=== PATIENT | male | born 1975 | race Two or more races ===

== ENCOUNTER 2018-08-09 12:02 | Inpatient (IN) | payer MEDICAID ==
[~2018-08-09] VITALS: Ht 167.6 cm; Wt 78.9 kg
[2018-08-09 12:52] LABS: microscopic required? NO
[2018-08-09 12:58] LABS: BASOPHIL % 0.4 % (0-2); PLATELET COUNT 136 x10^3mcL (130-400); RED CELL DISTRIBUTION WIDTH 12.7 % (11.5-14.5)
[2018-08-09 13:04] LABS: CALCIUM 8.8 mg/dL (8.5-10.1); CARBON DIOXIDE 26.3 mmol/L (21-32); CHLORIDE SERUM 102 mmol/L (98-107); CREATININE SERUM 0.6 mg/dL (0.7-1.3); GFR1 > 60 mL/min; GLUCOSE SERUM 264 mg/dL (74-106); POTASSIUM SERUM 3.9 mmol/L (3.5-5.1); SODIUM SERUM 135 mmol/L (136-145)
[2018-08-09 13:09] LABS: ALBUMIN 3.5 g/dL (3.4-5.0); ALKALINE PHOSPHATASE 60 U/L (46-116); ALT/SGPT 26 U/L (16-63); AST/SGOT 17 U/L (15-37); BILIRUBIN TOTAL 0.88 mg/dL (0.20-1.00); LIPASE 224 IU/L (73-393); TOTAL PROTEIN, SERUM 7.7 g/dL (6.4-8.2)
[2018-08-09 13:13] LABS: urine erythrocyte NEGATIVE (NEGATIVE)
[2018-08-09] MEDS ORDERED: METFORMIN HYDR500 M1 PO (14:08)
[2018-08-09 15:14] VITALS: BP 119/71
[2018-08-09 15:20] VITALS: Ht 167.6 cm; Wt 78.9 kg
[2018-08-09 16:25] VITALS: BP 103/57; BP 113/64
[2018-08-09 21:18] VITALS: BP 139/82
[2018-08-10 05:37] VITALS: BP 110/63
[2018-08-10 06:07] LABS: BASOPHIL % 0.5 % (0-2); RED CELL DISTRIBUTION WIDTH 13.1 % (11.5-14.5)
[2018-08-10 06:31] LABS: CALCIUM 8.4 mg/dL (8.5-10.1); CHLORIDE SERUM 105 mmol/L (98-107); CREATININE SERUM 0.6 mg/dL (0.7-1.3); GFR1 > 60 mL/min; GLUCOSE SERUM 153 mg/dL (74-106); POTASSIUM SERUM 4.1 mmol/L (3.5-5.1); SODIUM SERUM 140 mmol/L (136-145)
[2018-08-10 06:54] LABS: PLATELET COUNT 124 x10^3mcL (130-400)
[2018-08-10 08:47] VITALS: BP 114/68
[2018-08-10 11:27] VITALS: BP 122/75
[2018-08-10 16:38] VITALS: BP 150/83
[2018-08-10 21:06] VITALS: BP 125/75
[2018-08-11 06:04] VITALS: BP 102/59
[2018-08-11 08:53] VITALS: BP 133/79
[2018-08-11 10:12] LABS: BASOPHIL % 0.4 % (0-2); PLATELET COUNT 144 x10^3mcL (130-400); RED CELL DISTRIBUTION WIDTH 12.5 % (11.5-14.5)
[2018-08-11 10:30] LABS: ALKALINE PHOSPHATASE 50 U/L (46-116); ALT/SGPT 29 U/L (16-63); AST/SGOT 25 U/L (15-37); BILIRUBIN TOTAL 0.6 mg/dL (0.20-1.00); CALCIUM 9.4 mg/dL (8.5-10.1); CARBON DIOXIDE 29.7 mmol/L (21-32); CHLORIDE SERUM 102 mmol/L (98-107); CREATININE SERUM 0.7 mg/dL (0.7-1.3); GFR1 > 60 mL/min; GLUCOSE SERUM 197 mg/dL (74-106); SODIUM SERUM 137 mmol/L (136-145); TOTAL PROTEIN, SERUM 6.7 g/dL (6.4-8.2)
[2018-08-11 10:33] LABS: ALBUMIN 3.3 g/dL (3.4-5.0)
[2018-08-11 11:06] LABS: LIPASE 4996 IU/L (73-393)
[2018-08-11 13:27] VITALS: BP 136/80
[2018-08-11 17:10] VITALS: BP 133/84
[2018-08-11 20:28] VITALS: BP 118/73
[2018-08-12 04:27] VITALS: BP 100/70
[2018-08-12 08:32] VITALS: BP 116/70
[2018-08-12 10:26] VITALS: BP 116/70
== END 2018-08-12 11:19 | disposition home or self-care (01) | DRG 282 ==
LOC: ED 12:02 → DU 14:07
PROVIDERS: Emergency Medicine; Internal Medicine
DX: K85.20 Alcohol induced acute pancreatitis without necrosis or infection (principal); E11.65 Type 2 diabetes mellitus with hyperglycemia; K57.32 Diverticulitis of large intestine without perforation or abscess without bleeding; F10.10 Alcohol abuse, uncomplicated; F17.210 Nicotine dependence, cigarettes, uncomplicated; Z68.27 Body mass index [BMI] 27.0-27.9, adult; Z79.84 Long term (current) use of oral hypoglycemic drugs
CPT/HCPCS: 82962; J1885; J1956; J2543; J3490; J7120; Q9967

== ENCOUNTER 2020-07-24 06:17 | Emergency (ER) | payer MEDICAID ==
[~2020-07-24] VITALS: Ht 170.2 cm; Wt 75.3 kg
[~2020-07-24 06:17] MED LIST: METFORMIN HYDR500 M1 PO
[2020-07-24 06:27] VITALS: Ht 170.2 cm; Wt 75.3 kg
[2020-07-24 07:17] LABS: BASOPHIL % 0.3 % (0-2); PLATELET COUNT 158 x10^3mcL (130-400); RED CELL DISTRIBUTION WIDTH 12.8 % (11.5-14.5)
[2020-07-24 07:43] LABS: CARBON DIOXIDE 26.3 mmol/L (21-32); CHLORIDE SERUM 99 mmol/L (98-107); CREATININE SERUM 0.8 mg/dL (0.7-1.3); GFR1 > 60 mL/min; GLUCOSE SERUM 214 mg/dL (74-106); POTASSIUM SERUM 3.5 mmol/L (3.5-5.1); SODIUM SERUM 135 mmol/L (136-145)
[2020-07-24 07:47] LABS: ALBUMIN 3.9 g/dL (3.4-5.0); ALKALINE PHOSPHATASE 72 U/L (46-116); ALT/SGPT 30 U/L (16-63); AST/SGOT 24 U/L (15-37); BILIRUBIN TOTAL 0.48 mg/dL (0.20-1.00); LIPASE 125 IU/L (73-393); TOTAL PROTEIN, SERUM 7.9 g/dL (6.4-8.2)
[2020-07-24 08:51] VITALS: BP 132/75
== END 2020-07-24 08:51 | disposition home or self-care (01) ==
LOC: ED 06:17
PROVIDERS: Emergency Medicine
DX: R10.32 Left lower quadrant pain (principal); R10.12 Left upper quadrant pain; E11.9 Type 2 diabetes mellitus without complications; F17.210 Nicotine dependence, cigarettes, uncomplicated
CPT/HCPCS: J1885; J2405; J7030